=== PATIENT | female | born 1980 | race Caucasian/White ===

== ENCOUNTER 2018-02-04 02:50 | Emergency (ER) | payer OTHER ==
[~2018-02-04] VITALS: Ht 154.9 cm; Wt 59.9 kg
[2018-02-04 03:05] VITALS: BP 130/74
[2018-02-04 03:42] LABS: APPEARANCE,URINE TURBID (CLEAR); BILIRUBIN,URINE NEGATIVE (NEGATIVE); BLOOD, URINE 3+ Ery/uL (NEGATIVE); COLOR,URINE BROWN (YELLOW); KETONES,URINE TRACE (NEGATIVE); LEUKOCYTE ESTERASE ,URINE 3+ (NEGATIVE); NITRITE, URINE NEGATIVE (NEGATIVE); PROTEIN,URINE 2+ mg/dl (NEGATIVE); UGLUCOSE NEGATIVE (NEGATIVE); UROBILINOGEN,URINE 0.2 EU/dL (0.2)
[2018-02-04 03:54] LABS: RBC,URINE TOO NUMEROUS TO COUN /HPF (0-2)
[2018-02-04 03:57] LABS: BACTERIA,URINE Few /HPF (None Seen); SQUAMOUS EPITHELIAL CELL,UR Few /HPF (None Seen); WBC,URINE TOO NUMEROUS TO COUN /HPF (0-3)
[2018-02-04] MEDS ORDERED: CEPHALEXIN MONOHYDRATE 500 MG CAPSULE PO ONE ×3 (04:13→04:30)
[2018-02-04] MEDS ORDERED: PHENAZOPYRIDINE HCL 200 MG TABLET ONE ×2 (04:14→04:20)
[2018-02-04] MEDS ORDERED: PHENAZOPYRIDINE HCL 200 MG TABLET PO ONE (04:30)
== END 2018-02-04 04:21 | disposition home or self-care (01) ==
LOC: ER 02:50
DX: N30.80 Other cystitis without hematuria (principal); F41.9 Anxiety disorder, unspecified; Z87.440 Personal history of urinary (tract) infections
CPT/HCPCS: 81001; 84703; 87086; 99284; A4606; Z7610; 81000-TC